=== PATIENT | male | born 1935 | race Two or more races ===

== ENCOUNTER 2017-07-26 19:48 | Emergency (ER) | payer OTHER ==
[2017-07-26] MEDS ORDERED: HALOPERIDOL LACT 5 MG/ML INJ IM ONE (20:18)
[2017-07-26] MEDS ORDERED: HALOPERIDOL LACT 5 MG/ML INJ ONE (20:19)
[2017-07-26 20:48] LABS: PLATELET COUNT 291 10^3/uL (150-400)
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
[2017-07-26] MEDS ORDERED: OLANZapine DISINTEGR 10 MG TAB PO ONE (22:54)
[2017-07-27 05:40] VITALS: BP 111/66
[2017-07-27] MEDS ORDERED: OLANZapine DISINTEGR 5 MG TAB PO ONE (07:27)
== END 2017-07-27 08:38 | disposition home or self-care (01) ==
LOC: EDUNIT# → EEVIPCON 19:48
DX: R45.1 Restlessness and agitation (principal); F03.91 Unspecified dementia, unspecified severity, with behavioral disturbance; J45.909 Unspecified asthma, uncomplicated; E11.9 Type 2 diabetes mellitus without complications; I10 Essential (primary) hypertension; Z79.82 Long term (current) use of aspirin
CPT/HCPCS: 96372; 99285; J1630; G0480

== ENCOUNTER 2017-08-13 21:38 | Emergency (ER) | payer OTHER ==
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
[2017-08-13 22:50] VITALS: BP 110/72
== END 2017-08-13 23:35 | disposition home or self-care (01) ==
LOC: EDUNIT#
DX: Z04.3 Encounter for examination and observation following other accident (principal); I10 Essential (primary) hypertension; E11.9 Type 2 diabetes mellitus without complications; J45.909 Unspecified asthma, uncomplicated; Z79.82 Long term (current) use of aspirin; Y08.89XA Assault by other specified means, initial encounter; Y92.89 Other specified places as the place of occurrence of the external cause; Y99.8 Other external cause status; Y93.89 Activity, other specified

== ENCOUNTER 2017-08-26 12:14 | Emergency (ER) | payer OTHER ==
--- NOTE | 2017-08-26 13:13 | EDPHY ---
HPI/HX/ROS/PE/MDM Narrative: CHIEF COMPLAINT: Fall, neck pain HPI: The patient is an 82 y/o male with dementia and arriving via EMS with his for evaluation after a fall. No information regarding fall or loss of consciousness is available on assessment. Per RN who received EMS report, he apparently complained to staff of neck pain after the fall, but became uncooperative when they attempted to perform x-rays of his neck. Staff contacted EMS for transport here to get cervical spine x-rays. The patient is unable to provide any additional history, but currently denies pain or complaints. No anticoagulants per transfer paperwork. REVIEW OF SYSTEMS: Aside from elements discussed in the HPI, a comprehensive 10-point review of systems was reviewed and is negative. PMH: Dementia with behavioral disturbances, anxiety, diabetes type 2, cerebrovascular disease, hypertension, GERD, dysphagia, constipation, asthma SOCIAL HISTORY: Lives at [facility]. at bedside. DNR status. PHYSICAL EXAM: General:Patient is alert, in no acute distress. Head: U-shaped laceration to center of forehead measuring 2.5cm total length, well-approximated ENT:Eyes are normal to inspection. ENT inspection normal. Neck: Normal inspection. Full range of motion. Respiratory:No respiratory distress. Breath sounds normal bilaterally. Cardiovascular: Regular rate and rhythm. Strong peripheral pulses. Normal cap refill. Abdomen:The abdomen is nontender to palpation. There are no peritoneal signs. Back: Normal to inspection. No tenderness to palpation. Skin: Normal color. No rash. Warm and dry. Extremities: Normal appearance. Full range of motion. Neuro: Oriented x1. Moving all extremities. ED Course: This is an 82 y/o male with dementia who presents specifically for cervical spine x-rays after a fall. They were unable to perform x-rays at his facility due to uncooperative behavior, though it sounds like these type of behavior disturbances are likely baseline for him with his dementia. He has a small laceration to his forehead, no midline spinal tenderness, and is moving all extremities. Doubt spinal cord injury. Plan for cervical spine x-rays. Patient has been unable to lie still for x-rays and cannot keep his arms down. We will need to sedate him to perform imaging. 1mg PO Ativan and 1mg PO Olanzapine ordered. Patient threw water and spit out pills at RN and will require IM medication. 1mg IM Ativan and 2mg IM Haldol ordered. Neck x-ray is very limited due to patient movement and is difficult to interpret secondary to this, but I do not see fracture or other obvious injury. Reassessed patient and discussed findings with him and his . Exam remains unchanged. Recommended neck CT if they want to rule out fracture or other injury , but is adamantly declined this. Also recommended repair of forehead laceration, which has a temporary bandage on it currently, but also specifically asked me to not touch the laceration and leave the bandage on. Discussed risks of not performing CT and addressing laceration and she would still like him discharged home to his facility at this time. Return precautions discussed. - Data Points Imaging: I viewed and interpreted images myself Medications Given: Discontinued Medications Haloperidol Lactate (Haldol Injection) 2 mg IM EDNOW ONE Stop: 08/26/17 13:42 Last Admin: 08/26/17 13:54 Dose: 2 mg Lorazepam (Ativan) 1 mg PO EDNOW ONE Stop: 08/26/17 13:30 Last Admin: 08/26/17 13:43 Dose: Not Given Lorazepam (Ativan Injection) 1 mg IM EDNOW ONE Stop: 08/26/17 13:42 Last Admin: 08/26/17 13:55 Dose: 1 mg Olanzapine (Zyprexa Zydis) 5 mg PO EDNOW ONE Stop: 08/26/17 13:30 Last Admin: 08/26/17 13:33 Dose: 5 mg General Time Seen by Provider: 08/26/17 13:01 Initial Vital Signs: Initial Vital Signs Temperature (C) 36.8 C 08/26/17 12:26 Heart Rate 95 08/26/17 12:26 Respiratory Rate 16 08/26/17 12:26 Blood Pressure 163/79 H 08/26/17 12:26 O2 Sat (%) 94 08/26/17 12:26 O2 Delivery Mode Room Air Allergies/Adverse Reactions: No Known Allergies Allergy (Verified 08/13/17 21:41) Home Medications: Medication Instructions Recorded Aspirin [Aspirin 81mg (*)] 81 mg PO DAILY 09/30/11 Fluticasone/Salmeter 100/50Mcg 1 puffs IH BIDI 09/30/11 [Advair 100/50 (*)] Ipratropium/Albuterol [Combivent 2 puffs IH QIDI 09/30/11 Inhaler] Simvastatin [Zocor 40 mg] 40 mg PO DAILY18 09/30/11 glipiZIDE [Glipizide 10 MG (RX)] 5 mg PO DAILYAC 09/30/11 Lisinopril [Zestril 10 mg (*)] 5 mg PO DAILY 08/01/12 Losartan Potassium [Cozaar 25 mg 25 mg PO DAILY 08/03/12 (*)] Metoprolol Succinate Xr [Toprol Xl 25 mg PO DAILY 08/03/12 25 mg (*)] Pharmacy Completed 08/04/12 08/04/12 Amoxicillin 09/03/12 Omeprazole 09/03/12 Departure - Departure Disposition: Home, Routine, Self-Care Clinical Impression: Neck pain Fall Qualifiers: Encounter type: initial encounter Qualified Code(s): W19.XXXA - Unspecified fall, initial encounter Dementia Qualifiers: Dementia type: unspecified type Dementia behavioral disturbance: with behavioral disturbance Qualified Code(s): F03.91 - Unspecified dementia with behavioral disturbance Facial laceration Qualifiers: Encounter type: initial encounter Qualified Code(s): S01.81XA - Laceration without foreign body of other part of head, initial encounter Condition: Good Instructions: Dementia (ED), Fall Prevention for Older Adults (ED), Facial Laceration (ED) Additional Instructions: Follow up with your primary care provider as needed for continued symptoms. Use Tylenol and ibuprofen as directed on the packaging if needed for pain over the next few days. Return to the ED for worsening of condition. Referrals: CARLOS MONTOYA [Primary Care Provider] - As per Instructions Report Scribed for: Sudeep Méndez Report Scribed by: Elina Silveira Date of Report: 08/26/17 Time of Report: 13:28 Physician Review and Approval Statement: Portions of this note were transcribed by an ED scribe. I personally performed the history, physical exam, and medical decision making; and confirm the accuracy of the information in the transcribed note.
[2017-08-26] MEDS ORDERED: LORazepam 1 MG TAB PO ONE (13:29)
[2017-08-26] MEDS ORDERED: OLANZapine DISINTEGR 5 MG TAB PO ONE (13:29)
[2017-08-26] MEDS ORDERED: LORazepam 2 MG/ML INJ IM ONE (13:41)
[2017-08-26] MEDS ORDERED: HALOPERIDOL LACT 5 MG/ML INJ IM ONE (13:41)
[2017-08-26] MEDS ORDERED: SKIN ADHESIVE (DERMABOND) 1 EACH TP ONE (15:23)
[2017-08-26 17:20] VITALS: BP 144/95
--- NOTE | 2017-08-26 18:47 | ASDISCHSUM ---
Discharge Information Plan Status:SNF Medically Cleared to Leave: Discharge Date:08/26/2017 05:19 PM D/C Disposition:[facility] ADT D/C Disposition:Home, Routine, Self-Care Projected Discharge Date:08/26/2017 05:19 PM Transportation at D/C:ALS/BLS Discharge Delay Reason: Follow-Up Date:08/26/2017 05:19 PM Discharge Slot: Final Diagnosis: Placement Information Patient Contact Information Contact Name:JULIANNE Relationship: Address:[address] Work Phone: City:[place] Alternate Phone: State/Zip Code:[place] [address] Email: Financial Information Financial Class:Medicare Primary Plan Desc:MEDICARE OUTPATIENT Primary Plan Number:[id number] Secondary Plan Desc: Secondary Plan Number: Assessment Information Intervention Information Intervention Type:Transportation Date of Service:08/26/2017 06:45 PM Patient Type:Emergency Room Staff Member:JESSICA Rico, Cathie Hours:0.25 Discipline:Fly Tier Severity: Comment:[facility] stretcher transport [facility] arranged; PCS completed, copy given to EMS, original to be scanned into pt chart.
== END 2017-08-26 17:19 | disposition home or self-care (01) ==
LOC: EDUNIT#
DX: S19.9XXA Unspecified injury of neck, initial encounter (principal); S01.81XA Laceration without foreign body of other part of head, initial encounter; F03.91 Unspecified dementia, unspecified severity, with behavioral disturbance; I10 Essential (primary) hypertension; E11.9 Type 2 diabetes mellitus without complications; J45.909 Unspecified asthma, uncomplicated; Z79.82 Long term (current) use of aspirin; W18.39XA Other fall on same level, initial encounter
CPT/HCPCS: 72040; 96372; 99284; J1630; J2060